=== PATIENT | male | born 1950 | race Caucasian/White ===

== ENCOUNTER 2018-04-18 19:17 | Emergency (ER) | payer MEDICARE ==
[~2018-04-18] VITALS: Ht 195.6 cm; Wt 116.0 kg
[~2018-04-18 19:17] MED LIST: DOXYCYCL HYC100 MG PO; FLUARIX QUADRIV1 IN1 IM; FLUARIX QUADRIV1 INJ IM; FLUZONE SPLT1 M1 IM; MULTI VITAMN PO; RED YEAST RICE EXTRA PO; ZOSTAVAX IM
[2018-04-18 21:00] VITALS: BP 121/74
== END 2018-04-18 21:00 | disposition home or self-care (01) ==
LOC: ED 19:17
DX: T15.82XA Foreign body in other and multiple parts of external eye, left eye, initial encounter (principal); X58.XXXA Exposure to other specified factors, initial encounter; Y93.89 Activity, other specified